=== PATIENT | male | born 1970 | race Caucasian/White ===

== ENCOUNTER → 2019-07-23 13:28 | Outpatient (CLI) | payer OTHER, SELFPAY ==
[2015-09-27 05:46] VITALS: BMI 39.5
[2019-07-25 13:54] LABS: Hemoglobin 13.8 g/dL (13.0-16.5); Mean Corp Hgb Conc 33.7 g/dL (32-36); Mean Corpuscular Hgb 29.6 pg (27.0-32.0); Mean Corpuscular Volume 87.8 fL (80-94); Mean Platelet Vol. 11.2 fl (6.2-12.0); Platelet Count 179 K/mm3 (150-450); RBC Distribution Width CV 13.6 % (11.6-14.6); RBC Distribution Width SD 43.4 fl (35.1-43.9); Red Blood Count 4.67 M/mm3 (4.6-6.2); White Blood Count 8.3 K/mm3 (4.4-11.0)
== END ==
PROVIDERS: Family Provider Family Medicine; PCP Family Medicine; Referring Provider Family Medicine; Visit Provider Family Medicine
DX: E11.9 Type 2 diabetes mellitus without complications (principal)
CPT/HCPCS: 85027

== ENCOUNTER 2019-10-19 05:17 | Day surgery (SDC) | payer OTHER, SELFPAY ==
[2019-08-23 15:49] VITALS: BMI 39.5
--- NOTE | 2019-10-18 17:43 | PCM.HP.BLA ---
History and Physical Date of Admission: 10/19/19 HISTORY OF PRESENT ILLNESS 49 year old man presents with a soft tissue mass left lateral forehead by temporal hairline that has increased in size over the last several months and has become more raised in configuration. He denies trauma. He denies fever. He denies any recent infection. He has no trouble elevating his eyebrows. He presents at this time for further evaluation and treatment. Patient has diabetes mellitus and his latest HgbA1c was 5.8, confirmed by his PCP. PAST MEDICAL HISTORY Back problem Diabetes Frequent headaches High cholesterol High blood pressure PAST SURGICAL HISTORY appendectomy hernia surgery ALLERGIES acetaminophen [From Vicodin] hydrocodone MEDICATIONS Benzonatate [Tessalon Perle] Naproxen [Naprosyn] traMADol [Ultram (G)] atorvastatin glipizide losartan metformin FAMILY HISTORY Father - Arthritis, Diabetes, High cholesterol, Kidney disease Mother - Arthritis, Hypertension Brother - Diabetes SOCIAL HISTORY Smoking Status: Former smoker alcohol intake: current substance use type: does not use REVIEW OF SYSTEMS General - Denies fever, fatigue, and weight loss. Eyes - Denies cataracts and glaucoma. ENT - Denies nasal congestion and sore throat. Endocrine - Denies excessive thirst and urination. Skin - Denies suspicious skin cancer. Has enlarging soft tissue mass left lateral forehead by temporal hairline. Musculoskeletal - Has joint pain, joint stiffness and back pain. Denies weakness of muscles and joints and arthritis. Neuro - Has headaches. Cardiovascular - Denies chest pain, fatigue, and shortness of breath with exertion. Psych - Denies anxiety and depression. Respiratory - Denies chronic cough and shortness of breath. Patient is a former smoker. Gastrointestinal - Denies nausea, vomiting, diarrhea, and constipation. Hematologic - Denies abnormal bruising and bleeding. Genitourinary - Denies hematuria and urinary frequency. PHYSICAL EXAMINATION General - Alert and Oriented. HEENT - PERRL. EOMI. Throat is clear. On the left lateral forehead by temporal hairline is a soft tissue mass that measures 1.5 cm. It is mobile. No evidence of infection. No ulceration. Mild tenderness to palpation. He can elevate his eyebrows symmetrically. Neck - Supple and nontender. No cervical adenopathy. Lungs - Clear to auscultation. Heart - Regular rate and rhythm. Abdomen - Soft and nondistended. Extremities - FROM. No axillary adenopathy. Radial pulses are palpable. Neuro - CN II-XII grossly intact. Psych - Normal mood and affect. ASSESSMENT 1. 1.5 cm painful soft tissue mass left lateral forehead by temporal hairline. 2. Diabetes mellitus. 3. Former smoker. PLAN Recommend excision of this painful soft tissue mass left lateral forehead by temporal hairline and send it to Pathology for analysis to rule out carcinoma. Sometimes these forehead masses are submuscular in position. Surgery will be done on an outpatient basis under local anesthesia and IV sedation. His latest HgbA1c was 5.8, confirmed by his PCP. For elective surgery, the HgbA1c should be less than 8. Patient was informed of the risks and complications of the procedure including alternatives to surgery. These were discussed with the patient personally. Patient voices understanding and wishes to proceed. Some of the risks and complications were included in a form from the [employer].
--- NOTE | 2019-10-19 | IMM_PTH ---
PATIENT: ANIBAL MCLAUGHLIN [place]: [facility] [place][id number] AGE/SX: 49/M ROOM: RE10/19/[address]: Dr. Tate Jewell MD : 1970 BED: DIS: 10/19/2019 SPEC #: [id number] RECD: 10/22/19 12:39 STATUS: SOUT REQ #: [id number] FARIDA: 10/19/19 00:[address]: Tate Jewell DEPT: IMMUNOHISTOCHEMISTRY RECD BY: Marli Hawkins ENTERED: 10/22/19 12:40 SP TYPE: IMMUNO OTHR DR: Dr. Suzette Dumont DO Tissues: Skin of forehead Procedures: Synapto (add) SMA (add) BCL-2 (add) CD20 (add) CD3 (add) CD31 (add) CD34 (add) CD45 (add) CD5 (add) CD56 (add) CD79A (add) CHROMO (add) CK7 (add) CK8 (add) DESMIN (add) MART1 (add) Vimentin (add) Pankeratin (initial) S-100 (add) PHYSICIAN & INSTITUTION [address] [address] SPECIMEN INFORMATION: Tissue Source: Left lateral forehead soft tissue mass Clinical Info: Left lateral forehead soft tissue mass Specimen Number: [id number] CPT code: 24368, 06259 x18 METHODOLOGY: Deparaffinized sections of prefer/formalin-fixed tissue or PAP/DQ stained slides are incubated with monoclonal/polyclonal antibodies/oligonucleotide probes. Localization is made via biotin free immunoperoxidase method. Appropriate controls are performed and reacted as expected. Results on target cell population are indicated in the following table: RESULTS: ANTIBODY / CLONE RESULT AE1-3 (AE1/AE3/PCK26) negative CK7 (OV-TL12/30) negative CK8 (07ilgbR81) negative CD3 (PS1) positive CD5 (SP10) positive CD20 (L26) positive CD45 (RP2/18) positive CD79a (11E3) positive BCL-2 (bcl-2/100/D5) positive (negative in germinal center, reactive pattern) Vimentin (V9) positive CD31 (SOPHIA/70A) positive CD34 (QBEnd-10) negative Actin (1A4) negative Desmin (CE-R-11) positive, weak CD56 (123C3.D5) negative Chromo (LK2H10) negative Synapto (polyclonal) negative S-100 (4C4.9) negative MART-1 (A-103) negative These tests were developed and their performance characteristics determined by [facility]. They may not have been cleared or approved by the U.S. Food and Drug Administration. The FDA has determined that such clearance or approval is not necessary. The above immunohistochemical/dualISH markers are ordered and reviewed by the Pathologist. INTERPRETATION: Left lateral forehead soft tissue mass, excision: Focal mild benign endothelial hyperplasia and reactive changes, blood vessel. Benign lymph node tissue with reactive changes. SJ:logan 10/24/19 Case has been reviewed in consultation with Dr. Avila who concurs with the above diagnosis. IDC:AM
[2019-10-19 05:42] VITALS: BP 144/88; PULSE 70; RESP 16; TEMP 36.7; O2SAT 93; BMI 38.7
[2019-10-19] MEDS: Lactated Ringers 1,000 ML 100 ML IV (05:52)
[2019-10-19 07:05] LABS: Bedside Glucose 150 mg/dL (70-110)
--- NOTE | 2019-10-19 07:30 | MASS_PTH ---
PATIENT: ANIBAL MCLAUGHLIN LOC: [facility] – [place] U#:[id number] AGE/SX: 49/M ROOM: RE10/19/[address]: Dr. Tate Jewell MD : 1970 BED: DIS: 10/19/2019 SPEC #: [id number] RECD: 10/19/19 09:49 STATUS: MIGNON PORFIRIO #: [id number] FARIDA: 10/19/19 07:[address]: Tate Jewell DEPT: SURGICAL PATHOLOGY RECD BY: Kraig Henry ENTERED: 10/19/19 12:03 SP TYPE: Mass OTHR DR: Dr. Suzette Dumont DO Tissues: Forehead, NOS Procedures: Surgery Specimen Level IV HEADER OPERATION: Excision soft tissue mass, lateral forehead by hairline PRE-OP DIAGNOSIS: 1.5 cm painful soft tissue mass left lateral forehead by temporal hairline TISSUE SUBMITTED: Left lateral forehead soft tissue mass MICROSCOPIC DIAGNOSIS Left lateral forehead soft tissue mass, excisional biopsy: Benign lymph node tissue with reactive lymphoid hyperplasia. A medium sized blood vessel with mild benign endothelial cells hyperplasia and reactive changes. Negative for malignancy. See comment. JULIEN:logan 10/22/19 COMMENT The lymph node tissue surrounds a medium sized blood vessel. Immunohistochemistry ([id number]) supports the above diagnosis. Case has been reviewed in consultation with Dr. Avila who concurs with the above diagnosis. IDC:AM MICROSCOPIC DESCRIPTION Slides are reviewed. GROSS DESCRIPTION Received in fixative is one container labeled with the patient's name and designated left lateral forehead soft tissue mass. The specimen consists of four irregular fragments of pink to dark perry soft tissue that in aggregate measure 2.3 x 1.4 x 0.2 cm. The specimen is totally submitted in one cassette. / AM:logan 10/19/19 TC:5 CPT: 23358
[2019-10-19] MEDS: Mupirocin Ointment 22gm Tube 1 APPLIC (08:19)
--- NOTE | 2019-10-19 08:36 | PCM.OPRPT ---
Report of Operation Date of Procedure: 10/19/19 Pre-Operative Diagnosis: 1. 1.5 cm painful soft tissue mass left lateral forehead by temporal hairline. 2. Diabetes mellitus. 3. Former smoker. Post-Operative Diagnosis: 1. 1.5 cm painful intramuscular soft tissue mass, probable hemangioma, left lateral forehead by temporal hairline. 2. Diabetes mellitus. 3. Former smoker. Surgery/Procedure Performed:: Excision 1.5 cm painful intramuscular soft tissue mass, probable hemangioma, left lateral forehead by temporal hairline. Description of Surgical Findings:: 49 year old man presents with a soft tissue mass left lateral forehead by temporal hairline that has increased in size over the last several months and has become more raised in configuration. He denies trauma. He denies fever. He denies any recent infection. He has no trouble elevating his eyebrows. Patient has diabetes mellitus and his latest HgbA1c was 5.8, confirmed by his PCP. Patient was informed of the risks and complications of the procedure including alternatives to surgery. These were discussed with the patient personally. Patient voices understanding and wishes to proceed. Some of the risks and complications were included in a form from the [employer]. I used Katt absorbable hemostat. Reference Number - [id number]. Lot Number - [id number]. Expiration - June 06, 2024. filler and trimmer: None Type of Anesthesia:: Local MAC - xylocaine with epinephrine and IV sedation. Specimen's removed: Intramuscular soft tissue mass, probable hemangioma, left lateral forehead by temporal hairline to Pathology. Drains: None. Estimated Blood Loss (mL): 30 ml. Description of Procedure: Patient was taken to OR in supine position and was given IV sedation. The face was prepped and draped in the usual fashion. SCD's were placed for DVT prophylaxis. Perioperative antibiotics were given intravenously. The soft tissue mass left lateral forehead by temporal hairline was infiltrated with xylocaine and epinephrine. After waiting 5 minutes for the anesthetic to take effect, I made an oblique incision into the subcutaneous tissue. There was a small bulge in the underlying muscle. The muscle was dissected free and the mass was excised. There was a fair amount of bleeding that was controlled with electrocautery. Clinically the mass appeared to be a hemangioma. The wound was irrigated with saline. Hemostasis was obtained with electrocautery. The mass was sent to Pathology for analysis to rule out carcinoma. I sprayed Katt absorbable hemostat into the wound to minimize seroma formation. The mass was closed in a layered fashion as the deep dermis and subcutaneous tissue were approximated with 5-0 Monocryl interrupted sutures. The skin was approximated with 5-0 Prolene simple interrupted sutures. I could not approximate the muscle layer as some of the surrounding muscle was removed with the intramuscular mass. The length of the closure was 2 cm. Antibiotic ointment was applied to the suture line followed by 2x2 gauze compression dressing. Patient tolerated the procedure well and was sent to PACU in satisfactory condition. Patient will be sent home on antibiotics and pain medication. He will keep his head elevated during the initial postoperative period. Patient will followup in a week for a wound check and for discussion of the pathology report and for removal of the sutures. Grafts/Implants Used: None. - Complications none. - Admit VTE Documentation VTE Present on Admission: No VTE Mechan Device Prophylaxis: SCD's VTE Pharm Prophylaxis ordered?: No Code Visit Surgery Charges CPT - 00121 ICD-10 - R22.0, R20.8, E11.9, Z87.891
[2019-10-19 08:43] VITALS: BP 114/79; BP 144/88; PULSE 79; RESP 14; TEMP 36.4; O2SAT 95
[2019-10-19 08:45] VITALS: BP 106/72; BP 144/88; PULSE 78; RESP 16; O2SAT 95
--- NOTE | 2019-10-19 08:48 | DCINST_ITS ---
You will use the following diet at home:: Calorie/Carbohydrate Controlled (specify 1200, 1400, etc) Discharge Activity: May not drive while taking narcotic pain medications., May Shower - in two days., - - keep head elevated. no heavy lifting. May shower in (days): 2 May resume sexual activity in: No Restrictions Ice area for (Minutes): 5 - as needed for facial swelling. Weight Bearing Status: Weight bearing as tolerated Lifting Restrictions: 20 lbs. Keep extremity elevated above heart level: - - elevate head. Call your doctor if your incision/area has: Continuous Slow Oozing, Sudden Increased Bleeding, Increased Pain/ Swelling, Increased Redness, Foul Smelling Discharge, Swelling at the incision site Call your doctor if you observe: Fever of 101 or Higher, Coldness, Increased Pain, Shortness of breath, Chest pain, Calf discomfort, Uncontrolled pain Suture Line Care: - - after operative dressing removed in two days, apply antibiotic ointment to suture line daily. Remove Dressing in (days):: 2 Cleanse incision/area with: - - may get incision wet in the shower in two days. Allergies/Adverse Reactions: Allergies acetaminophen [From Vicodin] Allergy (Unknown, Verified 10/19/19 05:41) Unknown hydrocodone Allergy (Verified 10/19/19 05:41) Nausea Medications to take at Discharge Benzonatate [Tessalon Perle] 200 mg PO TID PRN PRN #20 cap 09/27/15 traMADol [Ultram] 50 mg PO Q4H PRN PRN #20 tab 09/27/15 atorvastatin 20 mg tablet 20 mg PO DAILY 07/02/19 glipizide 5 mg tablet 5 mg PO DAILY 07/02/19 losartan 50 mg tablet 50 mg PO DAILY 07/02/19 metformin 1,000 mg tablet 1,000 mg PO BID 07/02/19 Clindamycin HCl [Cleocin] 300 mg PO TID #12 cap 10/19/19 Oxycodone HCl/Acetaminophen [Percocet 5/325] 1 tablet PO Q6H PRN PRN 7 Days #30 tablet 10/19/19 The following prescriptions were given: Clindamycin HCl [Cleocin] 300 mg PO TID #12 cap Transmission Status: Pending to [facility]/pharmacy #[id number] Oxycodone HCl/Acetaminophen [Percocet 5/325] 1 tablet PO Q6H PRN PRN 7 Days #30 tablet PRN Reason: Pain Score 4-5/10 Transmission Status: Received by [facility]/pharmacy #[id number] Primary Care Physician: Suzette Dumont DO [Primary Care Provider] - Test Results: Test results from this visit will be discussed in further detail at your follow- up appointment, if applicable. Please Follow Up With: Tate Jewell MD When: one week. call [phone] for appt. Proposed Discharge Date: 10/19/19
[2019-10-19 08:50] VITALS: BP 109/72; BP 144/88; PULSE 74; RESP 16; O2SAT 95
[2019-10-19 08:55] VITALS: BP 109/72; BP 144/88; PULSE 68; RESP 16; TEMP 36.2; O2SAT 94
[2019-10-19 09:30] VITALS: BP 144/88
== END 2019-10-19 09:30 | disposition home or self-care (01) ==
LOC: SDC 05:20 → AC 05:20
PROVIDERS: Family Provider Family Medicine; PCP Family Medicine; Referring Provider Surgery; Visit Provider Surgery
PROC: (CPT 21013; principal; 2019-10-19 07:15)
DX: R22.0 Localized swelling, mass and lump, head (principal); R20.8 Other disturbances of skin sensation; E11.9 Type 2 diabetes mellitus without complications; E78.00 Pure hypercholesterolemia, unspecified; I10 Essential (primary) hypertension; Z79.1 Long term (current) use of non-steroidal anti-inflammatories (NSAID); Z79.84 Long term (current) use of oral hypoglycemic drugs; Z87.891 Personal history of nicotine dependence
CPT/HCPCS: 21013; 82962; 88305; 88341; 88342; J7120; J2405

== ENCOUNTER → 2020-05-20 | Outpatient (CLI) | payer OTHER, SELFPAY ==
[2019-11-15 15:27] VITALS: BMI 38.7
[2020-05-20 08:22] LABS: Hematocrit 45.5 % (40-54); Hemoglobin 14.7 g/dL (13.0-16.5); Mean Corp Hgb Conc 32.3 g/dL (32-36); Mean Corpuscular Hgb 28.8 pg (27.0-32.0); Mean Platelet Vol. 11.8 fl (6.2-12.0); Platelet Count 175 K/mm3 (150-450); RBC Distribution Width CV 13.5 % (11.6-14.6); RBC Distribution Width SD 43.9 fl (35.1-43.9); Red Blood Count 5.11 M/mm3 (4.6-6.2); White Blood Count 7.2 K/mm3 (4.4-11.0)
[2020-05-20 08:39] LABS: ALB/GLOB Ratio 1.1 RATIO (0.9-2.4); AST(SGOT) 29 U/L (15-37); Alanine Aminotransfer ALT/SGPT 79 U/L (16-61); Albumin, Serum 3.8 g/dL (3.2-5.0); Alkaline Phosphatase 71 U/L (45-117); Anion Gap 5 (5-15); BUN 13 mg/dL (7-18); BUN/Creat Ratio 16.4 RATIO (10-20); Calcium,Total 8.5 mg/dL (8.5-10.1); Chloride 106 mmol/L (98-107); Cholesterol 118 mg/dL (200); Creatinine, Serum 0.79 mg/dL (0.70-1.30); EST Glomerular Filtration Rate 109 mL/min (>60); Est Glom Filt Rate - Afr Amer 132 mL/min (>60); Globulin 3.5 g/dL (2.2-4.2); Glucose 119 mg/dL (74-106); High Density Lipoprotein 40 mg/dL; PSA,Total - Annual Screen 0.48 ng/mL (0.00-4.00); Potassium 4.1 mmol/L (3.5-5.1); Protein, Total 7.3 g/dL (6.4-8.2); Sodium Level 140 mmol/L (136-145); Triglycerides 41 mg/dL; Very Low Density Lipoprotein 8 mg/dL (5-40)
[2020-05-20 08:48] LABS: Microalbumin,Random Urine 7.2 mg/L (NO RANGE EST.); Microalbumin:Creatinine Ratio 5.1 mg/g CRE (<30 mg/g CRE)
== END | disposition home or self-care (01) ==
LOC: LABSPEC 07:35
PROVIDERS: Referring Provider Family Medicine; Visit Provider Family Medicine
DX: E11.9 Type 2 diabetes mellitus without complications (principal); Z12.5 Encounter for screening for malignant neoplasm of prostate
CPT/HCPCS: 80053; 80061; 82043; 82570; 84153; 85027; G0103

== ENCOUNTER → 2021-07-15 | Outpatient (CLI) | payer OTHER, SELFPAY ==
[2021-07-15 08:43] LABS: Hematocrit 42.1 % (40-54); Hemoglobin 14.3 g/dL (13.0-16.5); Mean Corpuscular Hgb 29.5 pg (27.0-32.0); Mean Corpuscular Volume 86.8 fL (80-94); Mean Platelet Vol. 11.2 fl (6.2-12.0); Platelet Count 195 K/mm3 (150-450); RBC Distribution Width CV 13.3 % (11.6-14.6); Red Blood Count 4.85 M/mm3 (4.6-6.2)
[2021-07-15 08:57] LABS: AST(SGOT) 32 U/L (15-37); Alanine Aminotransfer ALT/SGPT 71 U/L (16-61); Albumin, Serum 3.7 g/dL (3.2-5.0); Alkaline Phosphatase 71 U/L (45-117); Anion Gap 5 (5-15); BUN 17 mg/dL (7-18); BUN/Creat Ratio 21.4 RATIO (10-20); Calcium,Total 8.9 mg/dL (8.5-10.1); Chloride 106 mmol/L (98-107); Cholesterol 113 mg/dL (200); EST Glomerular Filtration Rate 108 mL/min (>60); Est Glom Filt Rate - Afr Amer 131 mL/min (>60); Globulin 3.8 g/dL (2.2-4.2); Glucose 95 mg/dL (74-106); High Density Lipoprotein 41 mg/dL; PSA,Total - Annual Screen 0.54 ng/mL (0.00-4.00); Potassium 4.2 mmol/L (3.5-5.1); Protein, Total 7.5 g/dL (6.4-8.2); Sodium Level 140 mmol/L (136-145); Triglycerides 49 mg/dL; Very Low Density Lipoprotein 10 mg/dL (5-40)
[2021-07-15 10:45] LABS: Microalbumin,Random Urine 10.3 mg/L (NO RANGE EST.); Microalbumin:Creatinine Ratio 10.9 mg/g CRE (<30 mg/g CRE)
== END | disposition home or self-care (01) ==
LOC: LABSPEC 08:33
PROVIDERS: Visit Provider Family Medicine
DX: E11.9 Type 2 diabetes mellitus without complications (principal); Z12.5 Encounter for screening for malignant neoplasm of prostate
CPT/HCPCS: 80053; 80061; 82043; 82570; 84153; 85027; G0103